=== PATIENT | male | born 1990 | race African-American/Black ===

== ENCOUNTER 2024-06-11 02:30 | Emergency (ER) | payer SELFPAY ==
[2024-06-11] MEDS: Sodium Chloride 0.9% 1,000 ML IV SCH (03:46)
[2024-06-11] MEDS: Labetalol 100 MG/20 ML MDV IVPUSH ONE ×3 (03:46→04:52)
[2024-06-11 03:57] LABS: BASOPHILS PERCENT AUTO 0.2 % (0.0-1.0); EOSINOPHILS ABSOLUTE AUTO 0.1 K/mm3 (0.0-0.4); EOSINOPHILS PERCENT AUTO 2.2 % (0.0-6.0); HEMATOCRIT 44.7 % (42.0-52.0); HEMOGLOBIN 14.6 gm/dl (14.0-18.0); IMMATURE GRAN ABSOLUTE AUTO 0.01 K/mm3 (0.00-0.05); IMMATURE GRAN PERCENT AUTO 0.2 % (0.0-0.4); LYMPHOCYTES ABSOLUTE AUTO 0.8 K/mm3 (1.0-4.8); LYMPHOCYTES PERCENT AUTO 17.2 % (24.0-44.0); MEAN CORPUSCULAR HEMOGLOBIN 25.1 pg (28.0-32.0); MEAN CORPUSCULAR HGB CONC 32.7 g/dl (32.0-36.0); MEAN CORPUSCULAR VOLUME 76.8 fl (83.0-99.0); MONOCYTES ABSOLUTE AUTO 0.4 K/mm3 (0.0-0.8); MONOCYTES PERCENT AUTO 7.8 % (0.0-8.0); NEUTROPHILS ABSOLUTE AUTO 3.3 K/mm3 (1.8-7.7); NEUTROPHILS PERCENT AUTO 72.4 % (41.0-71.0); PLATELET COUNT,PLT 233 K/mm3 (150-400); RED BLOOD CELL COUNT 5.82 M/mm3 (4.52-5.90)
[2024-06-11 04:15] LABS: INR 1.04
[2024-06-11 04:16] LABS: D-DIMER QUANTITATIVE 0.2 mg/L (0.19-0.50)
[2024-06-11 04:24] LABS: ALBUMIN 3.9 g/dl (3.4-5.0); BILIRUBIN TOTAL 0.6 mg/dL (0.2-1.0); BUN/CREATININE RATIO 10.9 (14-18); C-REACTIVE PROTEIN 0.29 mg/dL (<0.30); CALCIUM 8.8 mg/dL (8.5-10.1); CREATININE 1.1 mg/dL (0.7-1.3); EST CRCL DRUG DOSING (CG) 77.74 mL/min; PROTEIN TOTAL,TP 7.7 g/dl (6.4-8.2)
[2024-06-11 04:41] LABS: LACTIC ACID 1.3 mmol/L (0.4-2.0)
[2024-06-11] MEDS: Benzonatate 100 MG Cap PO ONE (04:52)
[2024-06-11 05:00] LABS: BARBITURATE SCREEN,URINE NEGATIVE (CUTOFF=200); BENZODIAZEPINES SCREEN,URINE NEGATIVE (CUTOFF=150); BUPRENORPHINE SCREEN,URINE NEGATIVE (CUTOFF=10); METHADONE SCREEN, URINE NEGATIVE (CUT0FF=200); METHAMPHETAMINES SCREEN, URINE NEGATIVE (CUTOFF=500); OXYCODONE SCREEN,URINE NEGATIVE (CUT0FF=100); THC SCREEN,URINE 20 NG/ML NEGATIVE (CUTOFF=50)
[2024-06-11 05:07] LABS: AMPHETAMINES SCREEN, URINE NEGATIVE (CUTOFF=500)
[2024-06-11] MEDS: Labetalol 100 MG in Sodium Chloride 0.9% 80 ML IV SCH (06:08)
[2024-06-11] MEDS: Sodium Chloride 0.9% 10 ML Syringe FLUSH PRN (06:17)
[2024-06-11] MEDS: Iopamidol 755 Mg/ML 100 ML Bottle IVPUSH ONE (06:17)
[2024-06-15 21:42] LABS: QNTIFERON MITOGEN MIN NIL 8.39 IU/mL; QNTIFERON NIL 0.08 IU/mL; QNTIFERON PLUS TB1 MINUS NIL 0.33 IU/mL (<=0.34); QNTIFERON PLUS TB2 MINUS NIL 0.42 IU/mL (<=0.34); QNTIFERON TB GOLD PLUS Positive (Negative)
== END 2024-06-11 07:00 ==
LOC: JD.ED 02:30
DX: R04.2 Hemoptysis (principal)
CPT/HCPCS: 36415; 71045; 71275; 80053; 80306; 80307; 83605; 83880; 84484; 85025; 85379; 85610; 85730; 86140; 86480; 86850; 86900; 86901; 87077; 87186; 87428; 87449; 93005; 96361; 96365; 96376; 99285; A9270; J1920; J7030; Q9967; 87070; 87205; G0433